=== PATIENT | female | born 1950 | race Caucasian/White ===

== ENCOUNTER → 2016-10-19 | Outpatient (CLI) | payer MEDICARE, BC ==
[~2016-10-19] MED LIST: ATOR20TA42 PO; FOLI1 PO; HYDR200T42 PO; METH2.5 PO; NADO1TAB16 PO; OYST500T77 PO; TAB-TAB PO
[2016-10-19 18:02] LABS: HEMATOCRIT 26.5 % (35.0-46.0); MEAN CELL VOLUME 74.1 FL (80.0-100.0); MEAN CORPUSCULAR HEMOGLOBIN 22.7 PG (27.0-34.0); MEAN CORPUSCULAR HGB CONC 30.7 % (32.0-36.0); PLATELET COUNT 331 TH/MM3 (150-450); RED BLOOD COUNT 3.58 MIL/MM3 (4.00-5.30); RED CELL DISTRIBUTION WIDTH 19.3 % (11.6-17.2); WHITE BLOOD COUNT 6.5 TH/MM3 (4.0-11.0)
[2016-10-19 18:11] LABS: REVIEW FLAG FINAL
[2016-10-19 18:29] LABS: ALT (GPT) 27 U/L (10-53); ANION GAP 6 MEQ/L (5-15); AST (GOT) 28 U/L (15-37); BICARBONATE 25.6 MEQ/L (21.0-32.0); BLOOD UREA NITROGEN 21 MG/DL (7-18); CHLORIDE 110 MEQ/L (98-107); GLOMERULAR FILTRATION RATE 91 ML/MIN (>89); POTASSIUM 3.9 MEQ/L (3.5-5.1); SODIUM (NA) 142 MEQ/L (136-145)
[2016-10-19 18:31] LABS: ALKALINE PHOSPHATASE 80 U/L (45-117); TOTAL BILIRUBIN ADULT 0.2 MG/DL (0.2-1.0)
[2016-10-19 18:36] LABS: WESTERGREN SEDIMENTATION RATE 49 mm/hr (0-30)
== END ==
LOC: PLAB 14:53
PROVIDERS: ATTEND Internal Medicine Rheumatology
DX: M06.89 Other specified rheumatoid arthritis, multiple sites (principal); Z79.899 Other long term (current) drug therapy
CPT/HCPCS: 36415; 80053; 85027; 85652; 86140

== ENCOUNTER → 2017-02-01 | Outpatient (CLI) | payer MEDICARE, BC ==
[2017-02-01 16:55] LABS: HEMATOCRIT 26.6 % (35.0-46.0); MEAN CELL VOLUME 71.7 FL (80.0-100.0); MEAN CORPUSCULAR HGB CONC 32.1 % (32.0-36.0); PLATELET COUNT 288 TH/MM3 (150-450); RED BLOOD COUNT 3.71 MIL/MM3 (4.00-5.30); RED CELL DISTRIBUTION WIDTH 23.5 % (11.6-17.2); REVIEW FLAG FINAL; WHITE BLOOD COUNT 5.7 TH/MM3 (4.0-11.0)
[2017-02-01 17:24] LABS: ANION GAP 5 MEQ/L (5-15); BICARBONATE 25.6 MEQ/L (21.0-32.0); BLOOD UREA NITROGEN 12 MG/DL (7-18); CHLORIDE 108 MEQ/L (98-107); GLOMERULAR FILTRATION RATE 98 ML/MIN (>89); GLUCOSE,FASTING 92 MG/DL (74-99); SODIUM (NA) 139 MEQ/L (136-145)
[2017-02-01 17:26] LABS: ALT (GPT) 20 U/L (10-53); AST (GOT) 21 U/L (15-37)
[2017-02-01 17:34] LABS: ALKALINE PHOSPHATASE 71 U/L (45-117); FREE T4 0.89 NG/DL (0.76-1.46); HDL CHOLESTEROL 72.6 MG/DL (40.0-60.0); LDL CHOLESTEROL 77 MG/DL (0-99); LDL CHOLESTEROL DIRECT 100 MG/DL (0-99); TOTAL BILIRUBIN ADULT 0.2 MG/DL (0.2-1.0)
== END ==
LOC: PLAB 13:30
PROVIDERS: ATTEND Urology
DX: M06.89 Other specified rheumatoid arthritis, multiple sites (principal); N28.1 Cyst of kidney, acquired; I10 Essential (primary) hypertension; E78.5 Hyperlipidemia, unspecified; Z79.899 Other long term (current) drug therapy
CPT/HCPCS: 36415; 80053; 80061; 83721; 84439; 84443; 85027; 85652; 86140

== ENCOUNTER 2017-07-30 13:06 | Day surgery (SDC) | payer MEDICARE, BC ==
[~2017-07-30 13:06] MED LIST changes: -ATOR20TA42 PO; -METH2.5 PO; +METH2.5T PO
[2017-07-30] MEDS ORDERED: FOLI1TAB6 PO (14:00)
[2017-07-30] MEDS ORDERED: CALC1TAB12 PO (14:00)
[2017-07-30] MEDS ORDERED: MULTTAB67 PO (14:00)
[2017-07-30] MEDS ORDERED: NADO20TA PO (14:00)
[2017-07-30] MEDS ORDERED: PLAQ200T PO (14:00)
[2017-07-30 14:01] VITALS: BP 111/64; PULSE 67; RESP 20; TEMP 97.6; O2SAT 97
[2017-07-30 15:00] VITALS: BP 103/54; PULSE 64; RESP 20; O2SAT 97
[2017-07-30] MEDS ORDERED: cefTRIAXone 1,000 MG/NS 100 ML IV ONE ×2 (15:00)
--- NOTE | 2017-07-30 16:38 | PD.RAD ---
Radiology Post PICC Prog Note Pre Procedure Diagnosis: (1) Osteomyelitis Post Procedure Diagnosis: (1) Osteomyelitis Procedure: Right PICC line placement Procedure Date: Jul 30, 2017 Supervising Radiologist Faustino Dc Proceduralist/Assist: RT Mark(R)() Device Side: Right [place]ian: 4 single lumen cm: 35 Catheter: Power PICC Faustino Dc MD Jul 30, 2017 16:38
--- NOTE | 2017-07-30 17:11 | RADRPT ---
EXAM DATE/TIME: 07/30/2017 15:53 [place] COMPARISON: No previous studies available for comparison. INDICATIONS : Patient has osteomyelitis, requires terminal block assembler antibiodics MEDICAL HISTORY : Anemia, left hip infection with wound vac, RA, T12 and T2 fractures SURGICAL HISTORY : Left shoulder, thoracic fusion, ENCOUNTER: Initial ACUITY: 1 week PAIN SCORE: 0/10 LOCATION: [place] TIME: 0.55 minutes IMAGE SERIES: 1 ACCESS: Right basilic vein DEVICE(S): 1.) 4 Nigerian single lumen 35 cm Power PICC PROCEDURE : 1. Ultrasound guidance for venous catheterization. 2. Fluoroscopic guidance. 3. Ultrasound & fluoroscopic guided central venous Power PICC line placement. The risks, benefits and alternatives to the procedure were explained and verbal and written consent w as obtained. The site was prepped in sterile fashion. Full sterile technique was used, including ca p, mask, sterile gloves and gown and a large sterile sheet. Hand hygiene and 2% chlorhexidine prep w as utilized per protocol for cutaneous antisepsis with appropriate dry time for site. Sterile gel a nd sterile probe cover were utilized for ultrasound guidance. The skin and subcutaneous tissues wer e infiltrated with local anesthetic solution. Under direct ultrasound guidance, a suitable vein was accessed and a measuring guidewire was introduc ed and positioned in the central venous system. The ultrasound images depicting access guidance were saved and stored to PACS for permanent record. A Power Injectable PICC line was cut to prescribed length and introduced, positioned with tip at the cavoatrial junction level. The line was flushed and secured per protocol. CONCLUSION: 1. Uncomplicated central venous Power PICC line placement. 2. The PICC line can be used immediately. Faustino Dc MD on July 30, 2017 at 17:08 Board Certified Radiologist. This report was verified electronically.
== END 2017-07-30 15:35 | disposition home or self-care (01) ==
LOC: HROP 13:06 → HRIP 13:09 → HROP 15:35
PROVIDERS: ATTEND Nurse Practitioner Acute Care
DX: M86.052 Acute hematogenous osteomyelitis, left femur (principal); D64.9 Anemia, unspecified
CPT/HCPCS: 36569; 76937; 77001; C1751; J0696; J1642